=== PATIENT | male | born 1960 | race American Indian/Alaskan Native ===

== ENCOUNTER 2017-02-23 14:22 | Emergency (ER) | payer MEDICAID, MEDICARE ==
[2017-02-23 15:30] LABS: Basophils % (Auto) 1.2 % (0.0-1.8); Eosinophils % (Auto) 5.9 % (0.0-4.3); Hematocrit 37.9 % (35.5-45.6); Hemoglobin 12.3 gm/dl (11.8-15.2); Mean Corpuscular HGB Conc 33 % (32-34); Mean Corpuscular Hemoglobin 31 pg (28-32); Mean Corpuscular Volume 95 fl (84-94); Platelet Count 190 K/mm3 (140-440); Red Blood Count 3.99 M/mm3 (3.65-5.03); Red Cell Distribution Width 14.1 % (13.2-15.2); White Blood Count 4.3 K/mm3 (4.5-11.0)
[2017-02-23 15:46] LABS: Anion Gap 16 mmol/L; BUN/Creatinine Ratio 22; Blood Urea Nitrogen 11 mg/dL (9-20); Calcium 8.6 mg/dL (8.4-10.2); Carbon Dioxide 25 mmol/L (22-30); Chloride 105.5 mmol/L (98-107); Glucose 118 mg/dL (75-100); Potassium 3.9 mmol/L (3.6-5.0); Sodium 143 mmol/L (137-145)
[2017-02-23] MEDS ORDERED: MOTRIN PO ONE (17:02)
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
[2017-02-23 18:13] LABS: Bacteria,Urine 2+ /HPF (Negative); Bilirubin,Urine NEG (Negative); Blood,Urine LG (Negative); Ketones,Urine NEG (Negative); Leukocyte Esterase,Urine LG (Negative); Mucus,Urine 2+ /HPF; Nitrite,Urine NEG (Negative); RBC,Urine > 182.0 /HPF (0.0-6.0); Urobilinogen,Urine < 2.0 mg/dL (<2.0)
[2017-02-23 18:14] LABS: WBC,Urine > 182.0 /HPF (0.0-6.0)
[2017-02-23 18:31] LABS: Urine Drugs of Abuse Note Disclamer
[2017-02-23] MEDS: MACROBID PO SCH (22:48)
[2017-02-24] MEDS: MACROBID PO SCH (12:28)
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
[2017-02-24] MEDS ORDERED: ROXICODONE PO ONE (16:20)
[2017-02-25] MEDS: MACROBID PO SCH ×2 (03:30→11:38)
[2017-02-25] MEDS ORDERED: IMODIUM PO ONE (07:18)
[2017-02-25] MEDS ORDERED: XYLOCAINE 1% MPF 5 mL INFILTRATI ONE (07:19)
[2017-02-25] MEDS ORDERED: ROCEPHIN IM ONE (07:19)
[2017-02-25 08:58] LABS: Bacteria,Urine 1+ /HPF (Negative); Bilirubin,Urine NEG (Negative); Blood,Urine LG (Negative); Ketones,Urine 20 mg/dL (Negative); Leukocyte Esterase,Urine LG (Negative); Mucus,Urine FEW /HPF; Nitrite,Urine NEG (Negative); Protein,Urine <15 mg/dL mg/dL (Negative); Urobilinogen,Urine < 2.0 mg/dL (<2.0)
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
[2017-02-25 20:05] VITALS: BP 128/72
== END 2017-02-25 17:45 | disposition home or self-care (01) ==
LOC: ED 14:22 → EEVIPCON 14:22 → ED 02-25 17:45
DX: R45.851 Suicidal ideations (principal); F32.9 Major depressive disorder, single episode, unspecified; N30.01 Acute cystitis with hematuria
CPT/HCPCS: 36415; 80048; 80307; 81001; 85025; 87076; 87086; 87186; 96372; 99284; G0480; J0696; 80320

== ENCOUNTER 2017-10-24 18:03 | Emergency (ER) | payer MEDICAID ==
[2017-10-24] MEDS ORDERED: NORCO 5/325 PO ONE (20:44)
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
[2017-10-24 21:07] LABS: Basophils # (Auto) 0.1 K/mm3 (0.0-0.1); Basophils % (Auto) 1.2 % (0.0-1.8); Eosinophils # (Auto) 0.2 K/mm3 (0.0-0.4); Eosinophils % (Auto) 2.5 % (0.0-4.3); Hematocrit 36.8 % (35.5-45.6); Hemoglobin 12.1 gm/dl (11.8-15.2); Lymphocytes # (Auto) 1.2 K/mm3 (1.2-5.4); Lymphocytes % (Auto) 16.4 % (13.4-35.0); Mean Corpuscular HGB Conc 33 % (32-34); Mean Corpuscular Hemoglobin 31 pg (28-32); Mean Corpuscular Volume 94 fl (84-94); Monocytes # (Auto) 0.4 K/mm3 (0.0-0.8); Monocytes % (Auto) 5.4 % (0.0-7.3); Platelet Count 260 K/mm3 (140-440); Red Blood Count 3.93 M/mm3 (3.65-5.03); Red Cell Distribution Width 14.6 % (13.2-15.2)
[2017-10-24 21:24] LABS: BUN/Creatinine Ratio 12; Blood Urea Nitrogen 6 mg/dL (9-20); Hemolysis Index 3
--- NOTE | 2017-10-24 21:29 | Cat Scan Report ---
FINAL REPORT PROCEDURE: CT HEAD/BRAIN WO CON TECHNIQUE: Computerized tomography of the head was performed without contrast material. HISTORY: Medical Clearance Psych. Aggressive behavior COMPARISON: No prior studies are available for comparison. FINDINGS: Brain: There is no evidence of intracranial hemorrhage. No parenchymal hemorrhage is seen. No mass lesions or mass effect is identified. No abnormal extra-axial fluid collections or masses are seen. There is some decreased density seen in the periventricular white matter without mass effect. This is fairly symmetric and does not exhibit any mass effect consistent with gliosis probably on the basis of microvascular disease or white matter changes of aging. Ventricles: The ventricles, sulcal pattern and fissures are prominent consistent with atrophy. Bones: No evidence of acute fracture. Paranasal sinuses: Visualized portions are clear. Mastoid air cells: clear IMPRESSION: There appears to be very mild atrophy and gliosis. No acute intracranial abnormalities are identified.
[2017-10-24 22:05] LABS: Amphetamine Screen,Urine PRESUMPTIVE NEGATIVE; Benzodiazepines Screen,Urine PRESUMPTIVE NEGATIVE; Cannabinoid Screen,Urine PRESUMPTIVE NEGATIVE; Cocaine Screen,Urine PRESUMPTIVE NEGATIVE; Methadone Screen,Urine PRESUMPTIVE NEGATIVE
[2017-10-24 22:07] LABS: Bilirubin,Urine NEG (Negative); Blood,Urine SM (Negative); Color,Urine Straw (Yellow); Protein,Urine <15 mg/dL mg/dL (Negative); Urobilinogen,Urine < 2.0 mg/dL (<2.0)
[2017-10-24 22:18] LABS: Opiate Screen,Urine PRESUMPTIVE POSITIVE
[2017-10-25] MEDS ORDERED: NORCO 5/325 PO ONE (11:53)
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
--- NOTE | 2017-10-25 15:44 | Emergency Department Report ---
Blank Doc - Documentation Documentation: I was asked by the psychiatric team to prepare discharge paperwork for this patient. He was evaluated by them today and they have rescinded his 1013. The patient has been seen by myself as well and he appears awake and alert in no acute distress. Vital signs stable. No new labs ordered today.
[2017-10-25 17:27] VITALS: BP 135/91
== END 2017-10-25 18:07 | disposition other institution (70) ==
LOC: EEVIPCON 18:03 → ED 18:03
DX: R46.89 Other symptoms and signs involving appearance and behavior (principal); G93.89 Other specified disorders of brain; Z79.82 Long term (current) use of aspirin
CPT/HCPCS: 36415; 70450; 80048; 80164; 80307; 81001; 82140; 85025; 93005; 93010; 99285; G0480; 80320

== ENCOUNTER 2018-06-26 14:42 | Emergency (ER) | payer MEDICAID ==
[2018-06-26] MEDS ORDERED: ASPIRIN PO ONE (15:06)
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
--- NOTE | 2018-06-26 15:49 | XRay Report ---
FINAL REPORT EXAM: XR CHEST 1V AP HISTORY: chest pain TECHNIQUE: Chest, AP upright PRIORS: None. FINDINGS: The heart size is normal. Mediastinal contours are normal. Pulmonary vasculature is not congested. The lungs are clear. There are no pleural effusion seen. There is no evidence of pneumothorax. IMPRESSION: There is no acute abnormality identified.
[2018-06-26 15:55] LABS: Basophils # (Auto) 0.1 K/mm3 (0.0-0.1); Basophils % (Auto) 1.3 % (0.0-1.8); Eosinophils # (Auto) 0.4 K/mm3 (0.0-0.4); Hematocrit 40.1 % (35.5-45.6); Hemoglobin 13.1 gm/dl (11.8-15.2); Lymphocytes # (Auto) 1.8 K/mm3 (1.2-5.4); Lymphocytes % (Auto) 35.1 % (13.4-35.0); Mean Corpuscular HGB Conc 33 % (32-34); Mean Corpuscular Volume 92 fl (84-94); Monocytes # (Auto) 0.4 K/mm3 (0.0-0.8); Monocytes % (Auto) 7.3 % (0.0-7.3); Platelet Count 295 K/mm3 (140-440); Red Blood Count 4.36 M/mm3 (3.65-5.03); Red Cell Distribution Width 15.9 % (13.2-15.2)
[2018-06-26 16:06] LABS: INR 0.95 (0.87-1.13)
[2018-06-26 16:12] LABS: BUN/Creatinine Ratio 8; Blood Urea Nitrogen 6 mg/dL (9-20); Calcium 9.3 mg/dL (8.4-10.2); Hemolysis Index 11
--- NOTE | 2018-06-26 18:29 | Cat Scan Report ---
FINAL REPORT EXAM: CT ANGIO CHEST HISTORY: CHEST PAIN, H/O PE TECHNIQUE: High-resolution helical axial images were obtained of the chest during intravenous admini stration of iodinated contrast. Images are reconstructed in the sagittal and coronal planes. PRIORS: None. FINDINGS: There is no evidence of pulmonary embolism, the pulmonary arteries opacify normally. There is moderate coronary artery atherosclerotic calcification. The heart is normal in size. The aor ta appears normal without evidence of aneurysm or dissection. Lung windows show biapical bullous disease. There is dependent interstitial thickening in the bilater al upper lobes. There is mild prominence of the interstitial markings in the bilateral lung bases. Th ere is mild right middle lobe subsegmental atelectasis. There is mild bibasilar dependent atelectasis . Images through the upper abdomen are unremarkable. The bones are unremarkable. IMPRESSION: 1. No evidence of pulmonary embolism. 2. Mild prominence of the interstitial markings most likely due to mild pulmonary edema. 3. Moderate coronary artery atherosclerotic calcification 4. Biapical bullous disease
[2018-06-26 23:51] VITALS: BP 118/74
== END 2018-06-26 23:52 | disposition home or self-care (01) ==
LOC: ED 14:42
DX: R07.89 Other chest pain (principal); R05 Cough; K59.00 Constipation, unspecified
CPT/HCPCS: 36415; 71045; 71275; 80048; 84484; 85025; 85379; 85610; 85730; 93005; 93010; 99285; Q9967

== ENCOUNTER 2018-09-20 13:32 | Observation (INO) | payer MEDICAID ==
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
[2018-09-20 16:16] LABS: INR 0.94 (0.87-1.13)
[2018-09-20 16:17] LABS: Partial Thromboplastin Time 28.6 Sec. (24.2-36.6)
[2018-09-20 16:25] LABS: Basophils % (Auto) 0.8 % (0.0-1.8); Eosinophils # (Auto) 0.2 K/mm3 (0.0-0.4); Eosinophils % (Auto) 4.4 % (0.0-4.3); Hematocrit 39.9 % (35.5-45.6); Lymphocytes # (Auto) 1.5 K/mm3 (1.2-5.4); Lymphocytes % (Auto) 27.5 % (13.4-35.0); Mean Corpuscular HGB Conc 33 % (32-34); Mean Corpuscular Volume 93 fl (84-94); Monocytes # (Auto) 0.3 K/mm3 (0.0-0.8); Monocytes % (Auto) 6.2 % (0.0-7.3); Platelet Count 251 K/mm3 (140-440); Red Blood Count 4.29 M/mm3 (3.65-5.03); Red Cell Distribution Width 15.1 % (13.2-15.2)
[2018-09-20 16:26] LABS: Alanine Aminotransferase 16 units/L (7-56); Albumin 4.4 g/dL (3.9-5); BUN/Creatinine Ratio 10; Blood Urea Nitrogen 6 mg/dL (9-20); Calcium 9.5 mg/dL (8.4-10.2); Hemolysis Index 9
[2018-09-20 16:34] LABS: Bilirubin,Direct < 0.2 mg/dL (0-0.2)
[2018-09-20] MEDS ORDERED: ASPIRIN PO ONE (16:51)
--- NOTE | 2018-09-20 17:42 | XRay Report ---
PROCEDURE: XR CHEST 1V AP TECHNIQUE: Single AP chest HISTORY: Chest Pain COMPARISONS: June 26 FINDINGS: Cardiac silhouette within normal limits. No airspace consolidation or pleural effusions. Pulmonary vasculature is within normal limits. No significant interval change. IMPRESSION: Stable radiograph with no evidence of acute disease.. This document is electronically signed by Gus Covington MD., Sep 20 2018 05:40:36 PM ET
[2018-09-20] MEDS ORDERED: MORPHINE IV ONE (19:54)
[2018-09-20] MEDS ORDERED: TYLENOL ONE (21:09)
[2018-09-20] MEDS ORDERED: TYLENOL PO ONE (21:15)
[2018-09-20] MEDS ORDERED: PERCOCET 5/325 PO ONE (23:42)
[2018-09-20] MEDS ORDERED: NACL 0.9% 1000 ML 1,000 ML IV SCH (23:45)
[2018-09-20] MEDS ORDERED: ZOFRAN IV PRN (23:50)
[2018-09-20] MEDS ORDERED: SODIUM CHLORIDE FLUSH SYRINGE 10 ML IV PRN ×2 (23:50→23:55)
[2018-09-20] MEDS ORDERED: TYLENOL PO PRN (23:50)
[2018-09-20] MEDS ORDERED: NITROSTAT SL PRN (23:55)
--- NOTE | 2018-09-21 00:09 | History and Physical Report ---
<FLACO DIA - Last Filed: 09/21/18 00:11> History of Present Illness Date of examination: 09/20/18 Date of admission: 09/20/2018 Chief complaint: Left substernal chest pain History of present illness: Mr. Barrera is a 58-year-old quadriplegic -[place] male who resides at [facility] retirement who presented to [facility] ED with c/o intermittent left substernal chest pain for the past day. He describes his pain as crushing. The pain does not radiate and he rates it has 7/10. Patient states he has a history of pulmonary embolism and is currently on Eliquis for anticoagulation therapy. Denies n/v, diaphoresis, cough, sputum production, hemoptysis, dyspnea, or recent sick contact. Review of chart shows that patient was seen in [facility] ED on 06/26/2018 with similar complaints. At which time CT scan was negative for any acute pulmonary abnormalities, and troponin was also negative. He was treated with Naprosyn and advised to follow-up with PCP in 2-3 days. It is unclear with the patient followed up with PCP. When asked he said that he had multiple doctor visits since his last ER visit. Past History Past Medical History: pulmonary embolism, other (quadriplegic) Past Surgical History: Other (cervical spine surgery) Social history: single, other (lives in retirement) Family history: no significant family history Medications and Allergies Allergies Allergy/AdvReac Type Severity Reaction Status Date / Time No Known Allergies Allergy Unverified 02/23/17 14:45 Home Medications Medication Instructions Recorded Confirmed Last Taken Type traMADol [Ultram 50 MG tab] 50 mg PO Q8H PRN 02/24/17 09/20/18 Unknown History Acetaminophen [Tylenol Extra 500 mg PO Q6HR PRN 06/26/18 09/20/18 Unknown History Strength] Apixaban [Eliquis] 2.5 mg PO BID 06/26/18 09/20/18 Unknown History Atorvastatin Calcium 80 mg PO QHS 06/26/18 09/20/18 Unknown History Dextran 70/Hypromellose 1 each OP TID 06/26/18 09/20/18 Unknown History [Artificial Tears] Docusate Sodium [Colace CAP] 100 mg PO BID PRN #60 capsule 06/26/18 09/20/18 Unknown Rx Fluticasone Propionate [Flovent 50 mcg IH QDAY 06/26/18 09/20/18 Unknown History Diskus] Gabapentin [Neurontin] 800 mg PO TID 06/26/18 09/20/18 Unknown History Lactulose 10 gm PO Q72HR 06/26/18 09/20/18 Unknown History Latanoprost [Xalatan] 2.5 ml OP QHS 06/26/18 09/20/18 Unknown History Melatonin 5 mg PO QHS 06/26/18 09/20/18 Unknown History QUEtiapine [SEROquel] 200 mg PO BID 06/26/18 09/20/18 Unknown History guaiFENesin/DEXTROMETHORPHAN 200 mg PO TID PRN 06/26/18 09/20/18 Unknown History [Tussin Dm Syrup] medroxyPROGESTERone ACETATE 10 mg PO QDAY 06/26/18 09/20/18 Unknown History [Medroxyprogesterone Acetate] Brimonidine Tartrate/Timolol 1 drop OU BID 09/20/18 09/20/18 Unknown History [Combigan 0.2%-0.5% Eye Drops] Tamsulosin [Flomax] 0.4 mg PO QDAY 09/20/18 09/20/18 Unknown History Active Meds: Active Medications Acetaminophen (Tylenol) 650 mg PO Q4H PRN PRN Reason: Pain MILD(1-3)/Fever >100.5/GREEN Enoxaparin Sodium (Lovenox) 40 mg SUB-Q QDAY [facility] Sodium Chloride (Nacl 0.9% 1000 Ml) 1,000 mls @ 100 mls/hr IV DIRECT [facility] Ondansetron HCl (Zofran) 4 mg IV Q8H PRN PRN Reason: Nausea And Vomiting Sodium Chloride (Sodium Chloride Flush Syringe 10 Ml) 10 ml IV BID [facility] Sodium Chloride (Sodium Chloride Flush Syringe 10 Ml) 10 ml IV PRN PRN PRN Reason: LINE FLUSH Review of Systems Constitutional: no weight loss, no weight gain, no fever, no chills, no sweats Ears, nose, mouth and throat: no tinnitis, no headache, no vertigo Cardiovascular: chest pain, no syncope, no lightheadedness, no shortness of breath Respiratory: no cough, no cough with sputum Gastrointestinal: no abdominal pain, no nausea, no vomiting Genitourinary Male: incontinence, no hematuria, no urinary frequency, no urinary hesitancy Rectal: pain, no incontinence Musculoskeletal: limitation of motion Integumentary: no rash, no pruritis, no redness Neurological: paralysis (quadriplegic incomplete) Psychiatric: no anxiety, no suicidal ideation, no depression Endocrine: no polydipsia, no polyuria, no nocturia Hematologic/Lymphatic: no easy bruising, no easy bleeding Allergic/Immunologic: no wheezing Exam - Physical Exam Narrative exam: Physical exam General appearance: Present: No acute distress, quadriplegic male - EENT Eyes: Present: PERRL, EOM intact ENT: hearing intact, poor dentition - Neck Neck: Present: supple, normal ROM - Respiratory Respiratory effort: Non-labored Respiratory: bilateral: diminished (bases) - Cardiovascular Heart rate: 90 (bpm) Rhythm: regular Heart Sounds: Present: S1 & S2. Absent: rub, click - Extremities Extremities: no ischemia, pulses intact, abnormal (incomplete quadriplegic limited ROM and extremities.) - Peripheral Assessment Peripheral Pulses: within normal limits - Abdominal General gastrointestinal: Rounded, soft, non-tender, normal bowel sounds - Integumentary Integumentary: Present: warm, dry - Musculoskeletal Musculoskeletal: Limited range of motion in extremities, able to move lower extr emities against gravity, able to move upper extremities against gravity but not resistance - Psychiatric Psychiatric: cooperative - Constitutional Vitals: Temp Pulse Resp BP Pulse Ox 98.2 F 90 16 127/79 97 09/20/18 23:26 09/20/18 23:26 09/20/18 23:26 09/20/18 23:26 09/20/18 23:26 Results - Labs CBC & Chem 7: 09/20/18 15:43 09/20/18 15:43 Labs: Laboratory Last Values WBC 5.6 K/mm3 (4.5-11.0) 09/20/18 15:43 RBC 4.29 M/mm3 (3.65-5.03) 09/20/18 15:43 Hgb 13.0 gm/dl (11.8-15.2) 09/20/18 15:43 Hct 39.9 % (35.5-45.6) 09/20/18 15:43 MCV 93 fl (84-94) 09/20/18 15:43 MCH 30 pg (28-32) 09/20/18 15:43 MCHC 33 % (32-34) 09/20/18 15:43 RDW 15.1 % (13.2-15.2) 09/20/18 15:43 Plt Count 251 K/mm3 (140-440) 09/20/18 15:43 Lymph % (Auto) 27.5 % (13.4-35.0) 09/20/18 15:43 [place] % (Auto) 6.2 % (0.0-7.3) 09/20/18 15:43 Eos % (Auto) 4.4 % (0.0-4.3) H 09/20/18 15:43 Baso % (Auto) 0.8 % (0.0-1.8) 09/20/18 15:43 Lymph # 1.5 K/mm3 (1.2-5.4) 09/20/18 15:43 [place] # 0.3 K/mm3 (0.0-0.8) 09/20/18 15:43 Eos # 0.2 K/mm3 (0.0-0.4) 09/20/18 15:43 Baso # 0.0 K/mm3 (0.0-0.1) 09/20/18 15:43 Seg Neutrophils % 61.1 % (40.0-70.0) 09/20/18 15:43 Seg Neutrophils # 3.4 K/mm3 (1.8-7.7) 09/20/18 15:43 PT 13.1 Sec. (12.2-14.9) 09/20/18 15:43 INR 0.94 (0.87-1.13) 09/20/18 15:43 APTT 28.6 Sec. (24.2-36.6) 09/20/18 15:43 < 135.00 ng/mlDDU (0-234) 09/20/18 15:43 Sodium 142 mmol/L (137-145) 09/20/18 15:43 Potassium 4.2 mmol/L (3.6-5.0) 09/20/18 15:43 Chloride 103.7 mmol/L (98-107) 09/20/18 15:43 Carbon Dioxide 25 mmol/L (22-30) 09/20/18 15:43 18 mmol/L 09/20/18 15:43 BUN 6 mg/dL (9-20) L 09/20/18 15:43 0.6 mg/dL (0.8-1.5) L 09/20/18 15:43 Estimated GFR > 60 ml/min 09/20/18 15:43 10 % 09/20/18 15:43 Glucose 99 mg/dL (75-100) 09/20/18 15:43 Calcium 9.5 mg/dL (8.4-10.2) 09/20/18 15:43 0.30 mg/dL (0.1-1.2) 09/20/18 15:43 < 0.2 mg/dL (0-0.2) 09/20/18 15:43 0.1 mg/dL 09/20/18 15:43 AST 21 units/L (5-40) 09/20/18 15:43 ALT 16 units/L (7-56) 09/20/18 15:43 116 units/L (35-129) 09/20/18 15:43 < 0.010 ng/mL (0.00-0.029) 09/20/18 15:43 7.2 g/dL (6.3-8.2) 09/20/18 15:43 4.4 g/dL (3.9-5) 09/20/18 15:43 1.6 % 09/20/18 15:43 Short CBC 09/20/18 Range/Units 15:43 WBC 5.6 (4.5-11.0) K/mm3 Hgb 13.0 (11.8-15.2) gm/dl Hct 39.9 (35.5-45.6) % Plt Count 251 (140-440) K/mm3 BMP 09/20/18 15:43 Sodium 142 Potassium 4.2 Chloride 103.7 Carbon Dioxide 25 BUN 6 L Creatinine 0.6 L Glucose 99 Calcium 9.5 Cardiac Enzymes 09/20/18 Range/Units 15:43 Troponin T < 0.010 (0.00-0.029) ng/mL Liver Function 09/20/18 Range/Units 15:43 Total Bilirubin 0.30 (0.1-1.2) mg/dL Direct Bilirubin < 0.2 (0-0.2) mg/dL AST 21 (5-40) units/L ALT 16 (7-56) units/L Alkaline Phosphatase 116 (35-129) units/L Albumin 4.4 (3.9-5) g/dL - Imaging and Cardiology EKG: image reviewed (SR @ 86 bpm, no acute abnormalities noted) Chest x-ray: report reviewed, image reviewed (Stable radiograph with no evidence of acute disease) Assessment and Plan Assessment and plan: Mr. Barrera is a 58-year-old quadriplegic -[place] male who resides at [facility] who presented to [facility] ED with c/o intermittent left substernal chest pain for the past day. He describes his pain as crushing. The pain does not radiate and he rates it has 7/10. Patient states he has a history of pulmonary embolism and is currently on Eliquis for anticoagulation therapy. EKG was unrevealing for any acute abnormalities. Troponin negative 1, d-dimer WNL. Patient will be admitted under observation to the telemetry unit with plans for Lexiscan in the morning. Acute chest pain Suspicion of coronary artery disease History of pulmonary embolism on anticoagulation History of neuropathy Quadriplegic Plans: Continue supportive care Repeat troponin pending Continuous telemetry monitoring EKG in a.m. per chest pain protocol Nitroglycerin when necessary Nothing by mouth Plans for Lexiscan in the morning; if negative patient may be discharged Patient may need outpatient follow-up with bag bailer Cardiology consult pending Continue statin Continue Eliquis DVT PPX on Eliquis and Lovenox Advance Directives: No VTE prophylaxis?: Chemical Plan of care discussed with patient/family: Yes <AP MARTIN - Last Filed: 09/27/18 00:20> History of Present Illness Date of admission: 09/20/18 23:33 Medications and Allergies Active Meds: Active Medications Acetaminophen (Tylenol) 650 mg PO Q4H PRN PRN Reason: Pain MILD(1-3)/Fever >100.5/GREEN Apixaban (Eliquis) 2.5 mg PO BID [facility]; Protocol Aspirin (Baby Aspirin) 81 mg PO QDAY [facility] Atorvastatin Calcium (Lipitor) 80 mg PO QHS [facility] Docusate Sodium (Colace) 100 mg PO BID [facility] Famotidine (Pepcid) 20 mg PO BID [facility] Gabapentin (Neurontin) 800 mg PO TID [facility] Sodium Chloride (Nacl 0.9% 1000 Ml) 1,000 mls @ 100 mls/hr IV DIRECT [facility] Last Admin: 09/21/18 02:11 Dose: 100 mls/hr Documented by: Melatonin (Melatonin) 5 mg PO QHS [facility] Last Admin: 09/21/18 02:08 Dose: Not Given Documented by: Nitroglycerin (Nitrostat) 0.4 mg SL Q5M PRN PRN Reason: Chest Pain Ondansetron HCl (Zofran) 4 mg IV Q8H PRN PRN Reason: Nausea And Vomiting Last Admin: 09/21/18 06:41 Dose: 4 mg Documented by: Oxycodone/Acetaminophen (Percocet 5/325) 1 tab PO Q6H PRN PRN Reason: Pain, Moderate (4-6) Quetiapine Fumarate (Seroquel) 200 mg PO BID [facility] Sodium Chloride (Sodium Chloride Flush Syringe 10 Ml) 10 ml IV BID [facility] Sodium Chloride (Sodium Chloride Flush Syringe 10 Ml) 10 ml IV PRN PRN PRN Reason: LINE FLUSH Sodium Chloride (Sodium Chloride Flush Syringe 10 Ml) 10 ml IV PRN PRN PRN Reason: LINE FLUSH Tamsulosin HCl (Flomax) 0.4 mg PO QDAY [facility] Exam - Constitutional Vitals: Temp Pulse Resp BP Pulse Ox 98.3 F 83 18 141/88 98 09/21/18 05:33 09/21/18 05:33 09/21/18 05:33 09/21/18 05:33 09/21/18 05:33 Results - Labs CBC & Chem 7: 09/20/18 15:43 09/20/18 15:43 Labs: Laboratory Last Values WBC 5.6 K/mm3 (4.5-11.0) 09/20/18 15:43 RBC 4.29 M/mm3 (3.65-5.03) 09/20/18 15:43 Hgb 13.0 gm/dl (11.8-15.2) 09/20/18 15:43 Hct 39.9 % (35.5-45.6) 09/20/18 15:43 MCV 93 fl (84-94) 09/20/18 15:43 MCH 30 pg (28-32) 09/20/18 15:43 MCHC 33 % (32-34) 09/20/18 15:43 RDW 15.1 % (13.2-15.2) 09/20/18 15:43 Plt Count 251 K/mm3 (140-440) 09/20/18 15:43 Lymph % (Auto) 27.5 % (13.4-35.0) 09/20/18 15:43 [place] % (Auto) 6.2 % (0.0-7.3) 09/20/18 15:43 Eos % (Auto) 4.4 % (0.0-4.3) H 09/20/18 15:43 Baso % (Auto) 0.8 % (0.0-1.8) 09/20/18 15:43 Lymph # 1.5 K/mm3 (1.2-5.4) 09/20/18 15:43 [place] # 0.3 K/mm3 (0.0-0.8) 09/20/18 15:43 Eos # 0.2 K/mm3 (0.0-0.4) 09/20/18 15:43 Baso # 0.0 K/mm3 (0.0-0.1) 09/20/18 15:43 Seg Neutrophils % 61.1 % (40.0-70.0) 09/20/18 15:43 Seg Neutrophils # 3.4 K/mm3 (1.8-7.7) 09/20/18 15:43 PT 13.1 Sec. (12.2-14.9) 09/20/18 15:43 INR 0.94 (0.87-1.13) 09/20/18 15:43 APTT 28.6 Sec. (24.2-36.6) 09/20/18 15:43 < 135.00 ng/mlDDU (0-234) 09/20/18 15:43 Sodium 142 mmol/L (137-145) 09/20/18 15:43 Potassium 4.2 mmol/L (3.6-5.0) 09/20/18 15:43 Chloride 103.7 mmol/L (98-107) 09/20/18 15:43 Carbon Dioxide 25 mmol/L (22-30) 09/20/18 15:43 18 mmol/L 09/20/18 15:43 BUN 6 mg/dL (9-20) L 09/20/18 15:43 0.6 mg/dL (0.8-1.5) L 09/20/18 15:43 Estimated GFR > 60 ml/min 09/20/18 15:43 10 % 09/20/18 15:43 Glucose 99 mg/dL (75-100) 09/20/18 15:43 6.5 % (4-6) H 09/21/18 00:39 Calcium 9.5 mg/dL (8.4-10.2) 09/20/18 15:43 0.30 mg/dL (0.1-1.2) 09/20/18 15:43 < 0.2 mg/dL (0-0.2) 09/20/18 15:43 0.1 mg/dL 09/20/18 15:43 AST 21 units/L (5-40) 09/20/18 15:43 ALT 16 units/L (7-56) 09/20/18 15:43 116 units/L (35-129) 09/20/18 15:43 < 0.010 ng/mL (0.00-0.029) 09/20/18 23:58 7.2 g/dL (6.3-8.2) 09/20/18 15:43 4.4 g/dL (3.9-5) 09/20/18 15:43 1.6 % 09/20/18 15:43 Triglycerides 143 mg/dL (2-149) 09/21/18 00:39 Cholesterol 187 mg/dL (50-199) 09/21/18 00:39 135 mg/dL (50-130) H 09/21/18 00:39 38 mg/dL (40-59) L 09/21/18 00:39 4.92 % 09/21/18 00:39 Assessment and Plan Assessment and plan: Patient seen and examined with nurse practitioner. This is a 58-year-old male comes in the emergency room with complaints of chest pain. Physical exam is benign, agree with plan as stated above, except d/c cardiology consult
[2018-09-21 01:47] LABS: Chol/HDL Ratio 4.92 %
[2018-09-21] MEDS ORDERED: MELATONIN PO SCH ×2 (02:00→22:00)
[2018-09-21] MEDS: PERCOCET 5/325 PO PRN ×3 (07:55→18:03)
[2018-09-21] MEDS ORDERED: LEXISCAN IV ONE ×2 (08:54)
[2018-09-21] MEDS ORDERED: BABY ASPIRIN PO SCH (10:00)
[2018-09-21] MEDS ORDERED: FLOMAX PO SCH (10:00)
[2018-09-21] MEDS ORDERED: PEPCID PO SCH (10:00)
[2018-09-21] MEDS ORDERED: ELIQUIS PO SCH (10:00)
[2018-09-21] MEDS ORDERED: LOVENOX SUB-Q SCH (10:00)
[2018-09-21] MEDS ORDERED: COLACE PO SCH (10:00)
[2018-09-21] MEDS ORDERED: SODIUM CHLORIDE FLUSH SYRINGE 10 ML IV SCH (10:00)
[2018-09-21] MEDS: NEURONTIN PO SCH ×2 (12:10→18:03)
--- NOTE | 2018-09-21 14:00 | Discharge Summary ---
Providers - Providers Date of Admission: 09/20/18 23:33 Date of discharge: 09/21/18 Attending physician: SARBJIT SUERO Primary care physician: [facility] MCKEON MD Hospitalization Condition: Fair Hospital course: Patient is 58 yo quadriplegic resident of SNF. he presented with chest pain. he was seen and evaluated in Emergency Department. Troponin was normal. He was given Aspirin and was admitted to rule out acute coronary syndrome. Stress test was done the next day was negative. Chest pain determined to be due to GERD. he was then discharged back to SNF. Disposition: DC/TX-03 SNF W [facility] CERT - Discharge Diagnoses (1) GERD (gastroesophageal reflux disease) Status: Acute (2) Chest pain Status: Acute Qualifiers: Chest pain type: unspecified Qualified Code(s): R07.9 - Chest pain, unspecified (3) Quadriplegia Status: Acute Core Measure Documentation - Palliative Care Palliative Care/ Comfort Measures: Not Applicable - Core Measures Any of the following diagnoses?: none Exam - Constitutional Vitals: Temp Pulse Resp BP Pulse Ox 98.3 F 108 H 18 142/80 97 09/21/18 12:11 09/21/18 12:09 09/21/18 12:09 09/21/18 12:09 09/21/18 12:09 Plan Activity: advance as tolerated Diet: low fat, low cholesterol, low salt Additional Instructions: 1.Follow up with Physician at [facility] in 3-5 days Follow up with: NYA ORTEZ MD [Primary Care Provider] - 3-5 Days
--- NOTE | 2018-09-21 17:59 | Treadmill Report ---
NUCLEAR STRESS TEST REFERRING PHYSICIAN: Hospitalist service. PROTOCOL: The patient was brought to the stress lab in a postabsorptive observed to state, given 10 mCi of technetium 99m at rest. The patient underwent rest imaging. The patient underwent a Lexiscan stress test per standard protocol. At peak stress, the patient was given 31 mCi of technetium 99m. Shortly thereafter, the patient underwent stress imaging. Raw imaging reveals mild GI artifact. No significant motion artifact. SPECT imaging examined carefully in the horizontal long axis, vertical long axis, and short axis views. There is normal homogenous uptake of radioisotope in all reported segments. No evidence of a significant fixed or reversible perfusion defects suggestive of prior infarction or ischemia. Gated wall motion reveals normal systolic thickening, calculated ejection fraction of 68%. No TID. CONCLUSIONS: 1. Normal myocardial perfusion scan without evidence of active ischemia or prior infarction. 2. Normal left ventricular systolic performance without evidence of transient ischemic dilatation or stress-induced segmental wall motion abnormalities. JOB# [id number] TIM/ANDREA
[2018-09-21 19:45] VITALS: BP 121/80
== END 2018-09-21 20:15 ==
LOC: ED 13:32 → 4A 23:33
PROVIDERS: ADMIT Internal Medicine; ATTEND Internal Medicine
DX: R07.89 Other chest pain (principal); I26.99 Other pulmonary embolism without acute cor pulmonale; G62.9 Polyneuropathy, unspecified; G82.50 Quadriplegia, unspecified; I25.10 Atherosclerotic heart disease of native coronary artery without angina pectoris; Z79.899 Other long term (current) drug therapy; Z87.891 Personal history of nicotine dependence
CPT/HCPCS: 36415; 71045; 78452; 80048; 80061; 80076; 83036; 84484; 85025; 85379; 85610; 85730; 93005; 93010; 93017; 96374; 99284; A9502; G0378; J2270; J2405; J2785; J7030

== ENCOUNTER 2019-06-02 12:18 | Emergency (ER) | payer MEDICAID ==
--- NOTE | 2019-06-02 15:18 | XRay Report ---
CHEST 1 VIEW INDICATION / CLINICAL INFORMATION: dyspnea. COMPARISON: 09/20/2018 FINDINGS: SUPPORT DEVICES: None. HEART / MEDIASTINUM: No significant abnormality. LUNGS / PLEURA: There is minimal atelectasis or scarring left base. No infiltrate, edema or effusion. No pneumothorax. ADDITIONAL FINDINGS: No significant additional findings. IMPRESSION: 1. No significant change Signer Name: Sandeep Meredith MD Signed: 06/02/2019 3:14 PM Workstation Name: [id number]
[2019-06-02] MEDS ORDERED: oxyCODONE /ACETAMINOPHEN 5-325MG TAB PO ONE (16:01)
[2019-06-02] MEDS ORDERED: DOXYCYCLINE 100 MG CAPSULE PO ONE (16:16)
[2019-06-02] MEDS ORDERED: ACETAMINOPHEN 500 MG TAB PO ONE (16:22)
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
[2019-06-02 16:57] VITALS: BP 138/84
== END 2019-06-02 18:35 | disposition home or self-care (01) ==
LOC: ED 12:18
DX: J20.9 Acute bronchitis, unspecified (principal); R07.89 Other chest pain; Z98.890 Other specified postprocedural states; Z79.899 Other long term (current) drug therapy
CPT/HCPCS: 71045; 93005; 93010

== ENCOUNTER 2019-06-25 13:12 | Emergency (ER) | payer MEDICAID ==
--- NOTE | 2019-06-25 14:45 | Ultrasound Report ---
SCROTAL ULTRASOUND. HISTORY: Scrotal pain. FINDINGS: Right testicle measures 3.6 x 2.1 x 2.2 cm. Left testicle measures 3.7 x 1.9 x 2.7 cm. Testicles are homogeneous in appearance and demonstrate appropriate flow. A small left hydrocele is n oted. IMPRESSION: 1. Normal appearance of the testicles. 2. Small left hydrocele. Signer Name: Harshad Null MD Signed: 06/25/2019 2:40 PM Workstation Name: [id number]
[2019-06-25 14:47] LABS: Basophils # (Auto) 0.1 K/mm3 (0.0-0.1); Basophils % (Auto) 0.8 % (0.0-1.8); Eosinophils # (Auto) 0.5 K/mm3 (0.0-0.4); Eosinophils % (Auto) 7.3 % (0.0-4.3); Hematocrit 41.4 % (35.5-45.6); Hemoglobin 13.5 gm/dl (11.8-15.2); Lymphocytes # (Auto) 1.8 K/mm3 (1.2-5.4); Lymphocytes % (Auto) 25.3 % (13.4-35.0); Mean Corpuscular HGB Conc 33 % (32-34); Mean Corpuscular Volume 93 fl (84-94); Monocytes # (Auto) 0.7 K/mm3 (0.0-0.8); Monocytes % (Auto) 9.7 % (0.0-7.3); Platelet Count 240 K/mm3 (140-440); Red Blood Count 4.46 M/mm3 (3.65-5.03); Red Cell Distribution Width 15.9 % (13.2-15.2)
[2019-06-25 15:07] LABS: BUN/Creatinine Ratio 10; Blood Urea Nitrogen 7 mg/dL (9-20); Calcium 8.8 mg/dL (8.4-10.2); Hemolysis Index 8
[2019-06-25 15:24] LABS: Bacteria,Urine 2+ /HPF (Negative); Bilirubin,Urine NEG (Negative); Blood,Urine LG (Negative); Color,Urine Red (Yellow); Hyaline Casts,Urine 3 /LPF; Mucus,Urine FEW /HPF; Urobilinogen,Urine < 2.0 mg/dL (<2.0)
[2019-06-25 15:25] LABS: RBC,Urine > 182.0 /HPF (0.0-6.0)
[2019-06-25] MEDS ORDERED: HYDROcodone/ACETAMINOPHEN 5-325 MG TAB PO ONE ×2 (16:51)
[2019-06-25] MEDS ORDERED: levoFLOXacin 500 MG TAB PO ONE (16:51)
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
[2019-06-25 20:11] VITALS: BP 112/75
== END 2019-06-25 20:19 | disposition home or self-care (01) ==
LOC: ED 13:12
DX: N30.01 Acute cystitis with hematuria (principal); Z98.890 Other specified postprocedural states; Z87.891 Personal history of nicotine dependence; Z79.899 Other long term (current) drug therapy
CPT/HCPCS: 36415; 80048; 81001; 85025; 87086; 93975